=== PATIENT | female | born 1960 | race Caucasian/White ===

== ENCOUNTER 2021-12-09 12:08 | Emergency (ER) | payer SELFPAY ==
[2021-12-09 14:49] LABS: CORONAVIRUS 2019 SARS-COV-2 NEGATIVE (NEGATIVE); INFLUENZA A NAA NEGATIVE (NEGATIVE)
[2021-12-09] MEDS ORDERED: TESSALON PERLE100 MG PO ×2 (15:16→15:21)
== END 2021-12-09 15:23 | disposition home or self-care (01) ==
LOC: FER 12:08
PROVIDERS: Physician Assistant Medical
DX: J06.9 Acute upper respiratory infection, unspecified (principal); Z20.822 Contact with and (suspected) exposure to COVID-19; Z88.0 Allergy status to penicillin; Z88.2 Allergy status to sulfonamides; Z88.5 Allergy status to narcotic agent; Z88.8 Allergy status to other drugs, medicaments and biological substances
CPT/HCPCS: 99283; U0002

== ENCOUNTER 2021-12-16 17:38 | Emergency (ER) | payer OTHER ==
[~2021-12-16 17:38] MED LIST: TESSALON PERLE100 MG PO
[2021-12-16 18:32] LABS: BASOPHIL 0.4 % (0-2); BILIRUBIN NEGATIVE (NEGATIVE); BLOOD NEGATIVE Ery/uL (NEGATIVE); CLARITY CLEAR (CLEAR); COLOR YELLOW (YELLOW); EOSINOPHIL 1.3 % (0-5); GLUCOSE (U) NORMAL (NORMAL); HCT 37.6 % (37.0-47.0); HGB 12.4 g/dl (12.5-16.0); LEUKOCYTES TRACE Leu/uL (NEGATIVE); LYMPHOCYTE 25.5 % (15-48); MCH 28.8 pg (25.0-31.0); MCV 87.2 fL (78.0-100.0); MONOCYTE 6.6 % (0-12); MPV 10.5 fL (6.0-9.5); NEUTROPHIL 64.8 % (41-80); NITRITE NEGATIVE (NEGATIVE); NRBC 0; PLT 269 K/uL (150-400); PROTEIN TRACE (LOW) mg/dL (NEGATIVE); RBC 4.31 M/uL (4.20-5.40); RDW 13.6 % (11.5-14.0); SPECIFIC GRAVITY 1.025 (1.001-1.030); WBC 12.2 K/uL (4.0-10.5); pH 7.5 (5.0-9.0)
[2021-12-16 18:37] LABS: BACTERIA TRACE
[2021-12-16 18:56] LABS: ALBUMIN 2.4 g/dL (3.4-5.0); ALKALINE PHOSHATASE 172 U/L (46-116); ALT 45 U/L (14-59); AST 34 U/L (15-37); BILIRUBIN - TOTAL 0.3 mg/dL (0.2-1.0); BUN 9 mg/dL (7-18); BUN/CREAT RATIO (CALC) 9.8 RATIO; C-REACTIVE PROTEIN >18.00 mg/dL (<=0.90); CHLORIDE 102 mmol/L (98-107); CO2 (BICARBONATE) 26 mmol/L (21-32); CREATININE 0.92 mg/dL (0.51-0.95); GLOBULIN (CALCULATION) 4.9 g/dL; GLUCOSE 109 mg/dL (74-106); POTASSIUM 3.6 mmol/L (3.5-5.1); TOTAL PROTEIN 7.3 g/dL (6.4-8.2)
[2021-12-16 19:06] LABS: LACTIC ACID 2.5 mmol/L (0.4-1.9)
[2021-12-16] MEDS ORDERED: PREDNISONE 20MG20 MG PO (20:22)
[2021-12-16] MEDS ORDERED: MUCINEX DM ER1 EACH PO (20:24)
[2021-12-16 20:30] LABS: AMPHETAMINES POSITIVE (NEGATIVE); BARBITURATES NEGATIVE (NEGATIVE); ECSTASY (MDMA) NEGATIVE (NEGATIVE); MARIJUANA (THC) NEGATIVE (NEGATIVE); METHADONE NEGATIVE (NEGATIVE); OPIATES POSITIVE (NEGATIVE); OXYCODONE NEGATIVE (NEGATIVE)
== END 2021-12-16 22:39 | disposition home or self-care (01) ==
LOC: FER 17:38
PROVIDERS: Emergency Medicine; Internal Medicine
DX: J18.9 Pneumonia, unspecified organism (principal); Z88.0 Allergy status to penicillin; Z88.2 Allergy status to sulfonamides; Z20.822 Contact with and (suspected) exposure to COVID-19
CPT/HCPCS: 36415; 71275; 80053; 80305; 81001; 83605; 83880; 84145; 84484; 85025; 86140; 87040; 93005; 94640; 94664; J2543; J2930; J7030; Q9967; U0002